=== PATIENT | male | born 1980 | race Caucasian/White ===

== ENCOUNTER 2017-06-23 16:29 | Emergency (ER) | payer SELFPAY ==
[~2017-06-23] VITALS: Ht 185.4 cm; Wt 96.6 kg
[~2017-06-23 16:29] MED LIST: ZANTAC
[2017-06-23] MEDS ORDERED: TRAMADOL HCL50 MG PO (18:54)
[2017-06-23] MEDS ORDERED: MOTRIN800 MG PO (18:54)
[2017-06-23 19:14] VITALS: BP 123/82
== END 2017-06-23 19:15 | disposition home or self-care (01) ==
LOC: RME 16:29 → EME 16:29 → RME 19:15
PROC: 3E0234Z Introduction of Serum, Toxoid and Vaccine into Muscle, Percutaneous Approach (ICD-10-PCS; principal; 2017-06-23)
DX: S60.221A Contusion of right hand, initial encounter (principal); S60.511A Abrasion of right hand, initial encounter; W22.09XA Striking against other stationary object, initial encounter; Z23 Encounter for immunization
CPT/HCPCS: 73130; 99281; 99284

== ENCOUNTER 2017-12-19 10:33 | Emergency (ER) | payer SELFPAY ==
[~2017-12-19] VITALS: Ht 185.4 cm; Wt 95.9 kg
[~2017-12-19 10:33] MED LIST changes: +MOTRIN800 MG PO; +TRAMADOL HCL50 MG PO
[2017-12-19] MEDS ORDERED: MOTRIN800 MG PO (14:29)
[2017-12-19] MEDS ORDERED: PREDNISONE20 MG PO (14:29)
[2017-12-19] MEDS ORDERED: VALIUM5 MG PO (14:29)
[2017-12-19 15:15] VITALS: BP 132/96
== END 2017-12-19 15:16 | disposition home or self-care (01) ==
LOC: EME 10:33
DX: M54.5 Low back pain (principal); F17.200 Nicotine dependence, unspecified, uncomplicated
CPT/HCPCS: 72100; 81003; 99281; 99284; J1885; J2060; J7512